=== PATIENT | female | born 1945 | race Caucasian/White ===

== ENCOUNTER 2021-11-21 01:31 | Emergency (ER) | payer OTHER ==
[~2021-11-21] VITALS: Ht 160 cm; Wt 74.8 kg
[2021-11-21] MEDS ORDERED: traMADol HCL 50 MG TAB PO ONE (06:30)
[2021-11-21 06:53] VITALS: BP 185/94
== END 2021-11-21 09:29 | disposition home or self-care (01) ==
LOC: EDBD 01:31 → ER 01:31
DX: S70.02XA Contusion of left hip, initial encounter (principal); I10 Essential (primary) hypertension; W18.39XA Other fall on same level, initial encounter; Y93.89 Activity, other specified; Y92.89 Other specified places as the place of occurrence of the external cause; Y99.8 Other external cause status
CPT/HCPCS: 72170

== ENCOUNTER 2025-05-11 14:36 | Inpatient (IN) | payer OTHER ==
[~2025-05-11] VITALS: Ht 149.9 cm; Wt 79.9 kg
[2025-05-11 15:22] VITALS: O2SAT 93
[2025-05-11] MEDS ORDERED: LABETALOL HCL 20 MG/4 ML VL IV ONE (15:30)
--- NOTE | 2025-05-11 15:52 | ED.PDOC ---
Back pain HPI HPI Comments Ms. 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 The patient, who mainly mobilizes utilizing a wheelchair, was ambulating supporting herself with said wheelchair when it snagged on a towel on the floor causing her to lose her balance and fall. She states she immediately felt pain in right ankle described as sharp, radiating up toward her knee, 8/10 intensity, worsened by bearing weight on the her right leg, without relieving factors, but denies hitting her head or losing consciousness after the fall. The patient was unable to stand on her own, for which she called EMS, however, the patient refused to be taken to a medical center for evaluation and signed an AMA once she was placed on her bed. She reports that pain worsened with complete inability to bear weight on her right leg, rendering her unable to get out of bed, for which she called EMS again today. Per EMS, on scene BP was 230/120 mmHg and blood glucose 200 mg. On initial evaluation, the patient is AOx4, BP 234/110 mmHg, HR 80 bpm, and saturating adequately on room air. Decreased range of motion, bruising, and swelling of right ankle are noted. Attestation note: Dr. Soto: I was the supervising attending for this ED encounter. Please see the resident's notes. I was available for questions and consultations. Differential diagnosis: Fracture, dislocation, neurovascular injury, hematoma, spine injury, As far as possible weakness: Includes but not limited to thyroid disease, encephalopathy, electrolyte abnormality, sepsis, infection, intracranial pathology, drug adverse effects, arrhythmia, kidney insufficiency, ACS, CVA, malignancy, anemia MDM: MDM: patient presented with the above HPI.----fall/extremity pain--workup was initiated. patient was found with the above mentioned diagnosis. the following medications were ordered: please refer to order lists of meds and tests obtained by myself Dr. Soto. Patient ED course and VS have been stabilized. Patient has been reassessed in the ED and remained in a stable condition. Pertinent incidental findings were discussed with the patient and/or family. Patient/family voices understanding and is agreeable with plan. Patient has been observed in the ED adequate length of time to insure improvement/stability. Escalation of care considered: Consideration of escalation to observation or admission Mallorie was consulted. Patient prefers to be admitted to the hospital here. [facility] gave us authorization. Patient will benefit from social service evaluation since she lives at home alone and needs help with activities of daily living. She is high-risk for frequent falls. Patient was ADMITTED to the medicine team for further evaluation and treatment of their presentation. All the reports of any imaging studies that were ordered by myself were reviewed by myself. Chief Complaint: Fall Injury Time Seen by MD: 14:40 Primary Care Provider: MALLORIE Reviewed Notes: Allergies Allergies: Coded Allergies: NO KNOWN ALLERGIES (Unverified , 11/21/21) Information Source: Patient, Emergency Med Personnel Mode of Arrival: EMS Timing: Days Duration: Since onset Location of Back pain: (R) Lumbar, Other (Right ankle) Radiates to: Anterior: Other (Right knee) Severity: Moderate Prehospital treatment: Accucheck Quality: Sharp Onset: Fall Past Medical History PAST MEDICAL HISTORY: DM, Gout, HIV, HTN, UTI'S Past Medical History (Other): Blindness secondary to dry macular degeneration Surgical History: Denies all surgeries CONSOLIDATOR History: No Pertinent CONSOLIDATOR History Family History Family History: Unknown Social History Smoker: Non-Smoker Alcohol: Denies ETOH Use Drugs: Denies Drug Use Lives In: Home Constitutional: denies: chills, diaphoresis, fatigue, fever, malaise, sweats, weakness EENTM: denies: blurred vision, double vision, ear pain, hearing loss, mouth pain, nasal discharge, nose bleeding, nose pain, photophobia, throat pain Respiratory: denies: cough, hemoptysis, orthopnea, shortness of breath Cardiovascular: denies: chest pain, dizzy spells, diaphoresis, edema, lightheadedness, palpitations Gastrointestinal: reports: nausea; denies: abdominal pain, constipated, diarrhea, dysphagia, hematemesis, melena, poor appetite, poor fluid intake Genitourinary: reports: frequency, incontinence, urgency; denies: burning, dysuria, flank pain, hematuria, pain Neurological: denies: dizziness, fainting, headache, numbness, paresthesia, seizure Musculoskeletal: reports: back pain, joint pain, joint swelling; denies: gout, muscle pain, muscle stiffness, neck pain Integumetry: reports: rash; denies: bruises, laceration, lesions, lumps, wounds Physical Exam General Appearance: Moderate Distress, Obese HEENT: Head (Normocephalic, atraumatic, without bruising or lacerations, not painful on palpation ), Normal ENT Inspection, PERRL/EOMI, Pharynx Normal Neck: Limited Range of Motion, Non-Tender, Normal Inspection Respiratory: Lungs Clear, No Accessory Muscle Use, No Respiratory Distress, Normal Breath Sounds Cardiovascular: No Edema, Normal Peripheral Pulses, Regular Rate/Rhythm Breast Exam: Deferred Gastrointestinal: Other (Obese, without bruising or lacerations, soft, normal bowel sounds, no pain on palpation) Genitalia: Deferred Pelvic: Deferred Rectal: Deferred Extremities: Normal capillary refill, Other (Bruising and swelling observed on the lateral surface of the right ankle, decreased range of motion observed, pain on palpation, pulses are present, sensation is intact) Neurologic: Alert, Normal Affect, Normal Mood, Other (No focal weakness or deficits observed at this time) Cerebellar Function: NOT DONE Reflexes: None Skin: Rash (Presence of red rash under right inframammary fold, non painful on palpation), Other (Description of right ankle as above) Peripheral Pulses: 3+ dorsalis pedis (R), 3+ dorsalis pedis (L) Lymphatic: Other (No cervical adenopathy) Was a procedure done? Was a procedure done?: No Back Pain Differential Dx Differential Diagnosis: Fracture, Musculoskeletal Pain Other Differential Diagnosis Fracture, strain, abrasion, head contusion, brain bleed, hematoma, syncope, rib fracture, hematoma X-Ray, Labs, Meds, VS Vital Signs Date Time Temp Pulse Resp B/P (MAP) Pulse Ox O2 Delivery O2 Flow Rate FiO2 05/11/25 19:00 98.3 77 18 162/83 (109) 93 98.3 05/11/25 17:39 74 152/68 05/11/25 17:00 98.5 74 12 152/68 (96) 92 98.5 05/11/25 16:56 156/73 (100) 05/11/25 16:39 75 193/98 05/11/25 16:18 193/98 (129) 05/11/25 15:22 98.5 80 14 230/114 (152) 93 98.5 05/11/25 15:22 93 Room Air* 0 21 05/11/25 14:51 98.7 64 18 230/120 97 98.7 Lab Test 05/11/25 17:56 05/11/25 17:09 05/11/25 16:54 05/11/25 16:08 Range/Units Magnesium Level 2.2 1.6-2.6 mg/dL Troponin I High Sensitivity 6 7 </=34 ng/L Urine Color Colorless Yellow Urine Clarity Clear Clear Urine pH 6.5 5.0-9.0 Urine Specific [place] 1.008 1.001-1.035 Urine Protein Negative Negative Urine Ketones Negative Negative Urine Blood Negative Negative /uL Urine Nitrite Negative Negative Urine Bilirubin Negative Negative Urine Urobilinogen Normal Negative mg/dL Urine Leukocyte Esterase Negative Negative /uL Urine RBC 1 0 - 4 /hpf Urine Microscopic WBC 3 0-5 /HPF Urine Squamous Epithelial Cells Few <5 /hpf Urine Bacteria Few H None Seen /hpf Urine Glucose 2+ H Normal mg/dL Urine Opiates Screen Pending Urine Fentanyl Screen Pending Urine Barbiturates Screen Pending Urine Phencyclidine Screen Pending Urine Amphetamines Screen Pending Urine Benzodiazepines Screen Pending Urine Cocaine Screen Pending Urine Cannabinoids Screen Pending POC Glucose 175 H 70-106 mg/dl White Blood Count 7.4 4.4-10.8 10^3/uL Red Blood Count 4.65 4.0-5.20 10^6/uL Hemoglobin 15.9 12.2-16.2 g/dL Hematocrit 44.6 36.0-46.0 % Mean Corpuscular Volume 95.8 80.0-100.0 fL Mean Corpuscular Hemoglobin 34.2 H 28.0-32.0 pg Mean Corpuscular Hemoglobin Concent 35.7 32.0-36.0 g/dL Red Cell Distribution Width 12.5 11.8-14.3 % Platelet Count 187 140-450 10^3/uL Mean Platelet Volume 7.9 6.9-10.8 fL Neutrophils (%) (Auto) 72.7 37.0-80.0 % Lymphocytes (%) (Auto) 17.6 10.0-50.0 % Monocytes (%) (Auto) 6.8 0.0-12.0 % Eosinophils (%) (Auto) 2.0 0.0-7.0 % Basophils (%) (Auto) 0.9 0.0-2.0 % Neutrophils # (Auto) 5.4 1.6-8.6 10 ^3/uL Lymphocytes # (Auto) 1.3 0.4-5.4 10 ^3/uL Monocytes # (Auto) 0.5 0-1.3 10 ^3/uL Eosinophils # (Auto) 0.1 0-0.8 10 ^3/uL Basophils # (Auto) 0.1 0-0.2 10 ^3/uL Nucleated Red Blood Cells 0.1 % Sodium Level 142 136-145 mmol/L Potassium Level 3.8 3.5-5.1 mmol/L Chloride Level 102 98-107 mmol/L Carbon Dioxide Level 31 20-31 mmol/L Anion Gap 9 5-15 Blood Urea Nitrogen 18 9-23 mg/dL Creatinine 0.79 0.550-1.02 mg/dL Glomerular Filtration Rate Calc 76 >90 mL/min BUN/Creatinine Ratio 22.8 H 10.0-20.0 Serum Glucose 187 H 74-106 mg/dL Lactic Acid Level 1.3 0.4-2.0 mmol/L Calcium Level 9.2 8.7-10.4 mg/dL Total Bilirubin 0.9 0.2-1.0 mg/dL Aspartate Amino Transferase (AST) 26 13-40 U/L Alanine Aminotransferase (ALT) 33 7-40 U/L Alkaline Phosphatase 105 46-116 U/L Creatine Kinase 122 34-145 U/L Total Protein 7.5 5.7-8.2 g/dL Albumin 4.6 3.2-4.8 g/dL Current Medications Medications (Trade) Dose Ordered Sig/Ten Route Start Time Stop Time Status Last Admin Labetalol HCl (Labetalol HCl) 5 mg ONCE ONCE IV 05/11/25 16:30 05/11/25 16:32 DC 05/11/25 16:39 Time of 1ST Reevaluation: 17:00 Reevaluation 1ST: Improved Patient Education/Counseling: Diagnosis, Treatment Family Education/Counseling: No Family Present Comments The patient presented due to ankle pain and inability to bear weight status post a mechanical fall at home last night On initial evaluation, the patient is uncomfortable due to pain, blood pressure 230/110 mmHg, and saturating adequately on room air. Additionally, given that the patient was unable to bear weight on her own accord and had no assistance at home, she was covered in urine from multiple episodes of incontinence. Examination is positive for bruising and swelling of the lateral aspect of the right ankle, with decreased range of motion and pain. Additionally there is presence of a red rash in the right inframammary fold. There were no other signs of bruising, trauma, or lacerations noted on physical exam. Workup including CBC and CMP are benign. UA shows no signs of infection. CK 122, troponins are negative Right ankle x-ray shows no evidence of fracture or malalignment with presence of diffuse edema. A Johansen catheter was placed. Labetalol 5 mg IV once was given for blood pressure control Granted that the patient is currently immobile due to pain, lives alone and does not have reliable help, we consider that she requires inpatient admission. Patient's vitals are currently stable, and she would be stable for transfer to [place]. I have spoken with Dr. Myers from [place] for this process, per [place], given that she lives 30 miles outside of the nearest [place] facility, her benefits allow her to stay at this institution. The patient has vocalized that she wishes to stay here. They state that authorization is the same as her case number listed below. Case # [id number] SEPSIS Sepsis Screen Date sepsis recognized/suspect: May 11, 2025 Time Sepsis recognized/suspect: 1444 Recent Procedure: No On Antibiotic Therapy: Yes Respiratory Rate >20: No Heart Rate >90: Yes Temp<36 C (96.8 F) or >38.3 C: No SBP <90 or MAP <65 mmHG: No New Acute Mental Status Change: No Is the patient on CPAP, BIPAP,: No Physician Orders Insert/Manage Urinary Catheter QSHIFT (05/11/25 15:24) R Ankle 2 View Xray (05/11/25 15:24) Urine Bacterial Culture (05/11/25 15:27) Electrocardigram (05/11/25 17:40) Head Without Contrast (05/11/25 17:40) Ct Ab Pel Wo Con-No Oral Or Iv (05/11/25 18:44) Vital Signs Date Time Temp Pulse Resp B/P (MAP) Pulse Ox O2 Delivery O2 Flow Rate FiO2 05/11/25 19:00 98.3 77 18 162/83 (109) 93 98.3 05/11/25 17:39 74 152/68 05/11/25 17:00 98.5 74 12 152/68 (96) 92 98.5 05/11/25 16:56 156/73 (100) 05/11/25 16:39 75 193/98 05/11/25 16:18 193/98 (129) 05/11/25 15:22 98.5 80 14 230/114 (152) 93 98.5 05/11/25 15:22 93 Room Air* 0 21 05/11/25 14:51 98.7 64 18 230/120 97 98.7 Laboratory Tests Test 05/11/25 16:08 Lactic Acid Level 1.3 mmol/L (0.4-2.0) White Blood Count 7.4 10^3/uL (4.4-10.8) Medications Medications Dose Ordered Sig/Ten Route Start Time Stop Time Status Last Admin Dose Admin Labetalol HCl 5 mg ONCE ONCE IV 05/11/25 16:30 05/11/25 16:32 DC 05/11/25 16:39 Departure 1 Departure Time of Disposition: 19:31 Impression: Primary Impression: Fall Additional Impressions: Ankle sprain Fibroid uterus Constipation Disposition: 09 ADMITTED INPATIENT Admit to: Tele Condition: Guarded Discharged With: Self Critical Care Note Critical Care Time?: No Stability Stability form required: No Heart Score Heart Score: Heart Score Response (Comments) Value History N/A 0 EKG N/A 0 Age N/A 0 Risk Factors N/A 0 Troponin N/A 0 Total 0 ASHU LUCIO RESIDENT May 11, 2025 15:52 ELODIA SOTO DO May 11, 2025 22:09
--- NOTE | 2025-05-11 16:18 | DVH ---
Indication: Ankle pain after fall Technique: XY R ANKLE 2 VIEW XRAYXY Comparison: None FINDINGS/IMPRESSION: No radiographic evidence for acute fracture or dislocation. Osteopenia. Diffuse right ankle soft ti ssue edema. [id number] degenerate changes of the right hindfoot.
[2025-05-11 16:38] LABS: Alanine Aminotransferase 33 U/L (7-40); Albumin 4.6 g/dL (3.2-4.8); Alkaline Phosphatase 105 U/L (46-116); Anion Gap 9 (5-15); BUN/Creatinine Ratio 22.8 (10.0-20.0); Blood Urea Nitrogen 18 mg/dL (9-23); Calcium 9.2 mg/dL (8.7-10.4); Carbon Dioxide 31 mmol/L (20-31); Chloride 102 mmol/L (98-107); Potassium 3.8 mmol/L (3.5-5.1); Sodium 142 mmol/L (136-145); Total Protein 7.5 g/dL (5.7-8.2)
[2025-05-11 16:39] LABS: Bilirubin, Total 0.9 mg/dL (0.2-1.0); Creatine Kinase IFCC 122 U/L (34-145); Glucose 187 mg/dL (74-106)
[2025-05-11] MEDS: LABETALOL HCL 20 MG/4 ML VL IV ONE (16:39)
[2025-05-11 16:47] LABS: Hematocrit 44.6 % (36.0-46.0); Hemoglobin 15.9 g/dL (12.2-16.2); Mean Corpuscular Hemoglobin 34.2 pg (28.0-32.0); Mean Corpuscular Volume 95.8 fL (80.0-100.0); Nucleated Red Blood Cells % 0.1 %
[2025-05-11 17:20] LABS: Urine Protein, UAD Negative (Negative)
--- NOTE | 2025-05-11 18:34 | DVH ---
CT HEAD WITHOUT CONTRAST INDICATION: Fall COMPARISON: None TECHNIQUE: CT of the head without intravenous contrast. RADIATION DOSE: CTDIvol: 53.18 mGy, DLP: 959.01 mGy*cm FINDINGS: There is no evidence of acute intracranial hemorrhage, extra-axial collection, mass effect, midline s hift, herniation or hydrocephalus. The ventricles, sulci and cisterns are age appropriate. The haider -white differentiation is intact. The visualized paranasal sinuses and mastoid air cells are clear. Chronic microvascular ischemic changes. The surrounding soft tissues and osseous structures are unrem arkable. IMPRESSION: 1. No acute intracranial abnormality. 2. Chronic microvascular ischemic changes
--- NOTE | 2025-05-11 20:07 | DVH ---
Exam: CT CT AB PEL WO CON-NO ORAL OR IV History: Pain after fall Comparison Study: PELVIS AP on DOS: 11/21/21, PELVS on DOS: 11/21/21 Technique: Multidetector spiral CT of the abdomen was performed from lung bases to pubic symphysis. Imaging was performed without IV contrast. Axial, coronal and sagittal multiplanar reformats were ob tained from the axial data set by the technologist. Radiation Dose : 1. Abdomen/Pelvis: CTDIvol 23.65 mGy, DLP 1348.9 mGy*cm. Findings: Evaluation of solid organs is limited due to lack of intravenous contrast use. Lung Bases: No acute or significant lung base finding. Normal heart size. No pleural or pericardial effusion. Liver: The liver is normal in size. No focal lesions. Gallbladder and Biliary Tree: Cholelithiasis noted without secondary findings of cholecystitis or mel iary obstruction. Spleen: Unremarkable Pancreas: The pancreas is grossly normal in appearance. Adrenal Glands: Unremarkable Kidneys: Kidneys are grossly normal without calculi or hydronephrosis. Bladder: Bladder is decompressed with a Johansen catheter and cannot be adequately assessed. Bowel: The stomach is grossly normal in appearance. Small bowel and colon are normal in caliber and d istribution. The appendix is not visualized; however, no secondary findings of acute appendicitis id entified. Moderate to severe colonic stool burden. Ascites: Absent Lymphadenopathy: No mesenteric, retroperitoneal or periportal lymphadenopathy. Abdominal Wall and Mesentery: Unremarkable. Vasculature: The visualized abdominal aorta is normal in size and caliber. Evaluation of abdominal a nd pelvic vessels is limited due to lack of intravenous contrast. Pelvic Organs: Partially calcified fibroid uterus. Musculoskeletal: No aggressive focal bony lesions, acute fractures or dislocation. Severe degenerativ e changes in the bilateral hip joints. IMPRESSION: 1. No acute abdominal or pelvic findings. 2. Cholelithiasis without secondary findings of cholecystitis or biliary obstruction. 3. Moderate to severe colonic stool burden. 4. Fibroid uterus. Radiation optimization: All CT scans at this facility use at least one of these dose optimization ana hniques: automated exposure control mA and/or kV adjustment per patient size (includes targeted exam s where dose is matched to clinical indication) or iterative reconstruction.
[2025-05-11] MEDS ORDERED: DEXTROSE (50%) 50ML SYRG IV PRN (21:00)
[2025-05-11] MEDS ORDERED: ACETAMINOPHEN 325 MG TAB PO PRN (21:00)
--- NOTE | 2025-05-11 21:41 | DVHHPRES ---
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 Patient reports that she uses a wheelchair to ambulate because of pain in her knees due to gout and today morning when she was trying to pivot to the wheelchair it snapped on a towel on the floor causing her to lose balance and fall. She immediately felt pain in her right ankle describing it as sharp, radiating up towards her knee, 8/10 intensity, worsened by bearing weight on the right leg without any relieving factors prompting her to visit [facility]. She left AMA but upon returning home the pain was increasing so she called the EMR and was brought to this facility. Patient denies hitting her head or losing consciousness after the fall, any shortness of breath, chest pain, dizziness, nausea, vomiting, abdominal pain, back pain. On inquiry, patient states that she has not taken blood pressure medications since last night as she was unable to ambulate. BP on admission was 230/120 mmHg, HR 80 BMP, and blood glucose 200 mg. We are admitting the patient for further workup and management. Past medical history: As stated above Surgical history: Bilateral tubal ligation Family history: Reviewed and noncontributory to the management of this lon Social history: lives at home. Denies smoking, drinking alcohol but reports she sometimes drinks tea which contains cannabinoids Allergies: none Primary Care Provider: M[facility]OR[facility]- Dr. Riggins Code status: Full code Review of Systems Constitutional: No: Fever, Chills, Sweats, Weakness, Malaise, Other Eyes: No: Pain, Vision change, Conjunctivae inflammation, Eyelid inflammation, Other, Redness ENT: No: Ear pain, Ear discharge, Nose pain, Nose discharge, Nose congestion, Mouth pain, Mouth swelling, Throat pain, Throat swelling, Other Respiratory: No: Cough, Dry, Shortness of breath, SOB with excertion, Wheezing, Hemoptysis, Pleuritic Pain, Sputum, Wheezing, Other Cardiovascular: No: Chest Pain, Palpitations, Orthopnea, Paroxysmal Noc. Dyspnea, Edema, Lt Headedness, Other Gastrointestinal: No: Nausea, Vomiting, Abdominal Pain, Diarrhea, Constipation, Melena, Hematochezia, Other Genitourinary: No Dysuria, No Frequency, No Incontinence, No Hematuria, No Retention, No Other Musculoskeletal: foot pain (right ankle pain and swelling); No: other, neck pain, shoulder pain, arm pain, back pain, hand pain, leg pain Skin: No: Rash, Lesions, Jaundice, Bruising, Other Neurological: No: Weakness, Numbness, Incoordination, Change in speech, Confusion, Seizures, Other Allergies: Coded Allergies: NO KNOWN ALLERGIES (Unverified , 11/21/21) Medications Current Medications Medications Dose Ordered Sig/Ten Route Start Time Stop Time Status Last Admin Dose Admin Acetaminophen/ Hydrocodone Bitart 1 tab Q4HP PRN PO 05/11/25 21:00 Ondansetron HCl 4 mg Q4HP PRN IV 05/11/25 21:00 Acetaminophen 650 mg Q6HP PRN PO 05/11/25 21:00 Enoxaparin Sodium 40 mg DAILY SC 05/11/25 21:00 Diagnostic Test (Pha) 1 strip ACHS 05/11/25 22:00 Insulin Human Regular ACHS SC 05/11/25 22:00 Dextrose 50 ml UD PRN IV 05/11/25 21:00 Losartan Potassium 25 mg DAILY PO 05/12/25 10:00 Allopurinol 100 mg DAILY PO 05/12/25 10:00 Hydromorphone HCl 0.25 mg Q4HPRN PRN IV 05/11/25 21:00 Carvedilol 6.25 mg Q12HR PO 05/12/25 10:00 Hydralazine HCl 10 mg Q6HP PRN IV 05/11/25 21:00 Exam Vital Signs Vital Signs Date Time Temp Pulse Resp B/P (MAP) Pulse Ox O2 Delivery O2 Flow Rate FiO2 05/11/25 19:00 98.3 77 18 162/83 (109) 93 98.3 05/11/25 15:22 Room Air* 0 21 Exam Pt is lying on bed General Appearance: Alert, Oriented X3, Cooperative, in mild distress HEENT: Atraumatic, Mucous membranes moist/pink Respiratory: Clear to auscultation, Normal air movement, No added sounds Cardiovascular: Regular rate, Normal S1, Normal S2, No murmurs Abdominal: Active bowel sounds, Soft, no distention, no tenderness Extremities: No edema, Normal pulses, Tenderness present in the right ankle joint more on the lateral malleolus, swelling present in comparison to the left leg, no bruising Skin: No Significant rash, except past surgical scars Neuro: Normal speech, sensorimotor deficits none Psych/Mental Status: Mental status NL, Mood NL Labs/Xrays Labs Test 05/11/25 17:56 05/11/25 17:09 05/11/25 16:54 05/11/25 16:08 Range/Units Troponin I High Sensitivity 6 </=34 ng/L Urine Color Colorless Yellow Urine Clarity Clear Clear Urine pH 6.5 5.0-9.0 Urine Specific [place] 1.008 1.001-1.035 Urine Protein Negative Negative Urine Ketones Negative Negative Urine Blood Negative Negative /uL Urine Nitrite Negative Negative Urine Bilirubin Negative Negative Urine Urobilinogen Normal Negative mg/dL Urine Leukocyte Esterase Negative Negative /uL Urine RBC 1 0 - 4 /hpf Urine Microscopic WBC 3 0-5 /HPF Urine Squamous Epithelial Cells Few <5 /hpf Urine Bacteria Few H None Seen /hpf Urine Glucose 2+ H Normal mg/dL POC Glucose 175 H 70-106 mg/dl White Blood Count 7.4 4.4-10.8 10^3/uL Red Blood Count 4.65 4.0-5.20 10^6/uL Hemoglobin 15.9 12.2-16.2 g/dL Hematocrit 44.6 36.0-46.0 % Mean Corpuscular Volume 95.8 80.0-100.0 fL Mean Corpuscular Hemoglobin 34.2 H 28.0-32.0 pg Mean Corpuscular Hemoglobin Concent 35.7 32.0-36.0 g/dL Red Cell Distribution Width 12.5 11.8-14.3 % Platelet Count 187 140-450 10^3/uL Mean Platelet Volume 7.9 6.9-10.8 fL Neutrophils (%) (Auto) 72.7 37.0-80.0 % Lymphocytes (%) (Auto) 17.6 10.0-50.0 % Monocytes (%) (Auto) 6.8 0.0-12.0 % Eosinophils (%) (Auto) 2.0 0.0-7.0 % Basophils (%) (Auto) 0.9 0.0-2.0 % Neutrophils # (Auto) 5.4 1.6-8.6 10 ^3/uL Lymphocytes # (Auto) 1.3 0.4-5.4 10 ^3/uL Monocytes # (Auto) 0.5 0-1.3 10 ^3/uL Eosinophils # (Auto) 0.1 0-0.8 10 ^3/uL Basophils # (Auto) 0.1 0-0.2 10 ^3/uL Nucleated Red Blood Cells 0.1 % Sodium Level 142 136-145 mmol/L Potassium Level 3.8 3.5-5.1 mmol/L Chloride Level 102 98-107 mmol/L Carbon Dioxide Level 31 20-31 mmol/L Anion Gap 9 5-15 Blood Urea Nitrogen 18 9-23 mg/dL Creatinine 0.79 0.550-1.02 mg/dL Glomerular Filtration Rate Calc 76 >90 mL/min BUN/Creatinine Ratio 22.8 H 10.0-20.0 Serum Glucose 187 H 74-106 mg/dL Lactic Acid Level 1.3 0.4-2.0 mmol/L Calcium Level 9.2 8.7-10.4 mg/dL Total Bilirubin 0.9 0.2-1.0 mg/dL Aspartate Amino Transferase (AST) 26 13-40 U/L Alanine Aminotransferase (ALT) 33 7-40 U/L Alkaline Phosphatase 105 46-116 U/L Creatine Kinase 122 34-145 U/L Total Protein 7.5 5.7-8.2 g/dL Albumin 4.6 3.2-4.8 g/dL SEPSIS Sepsis Screen Date sepsis recognized/suspect: May 11, 2025 Time Sepsis recognized/suspect: 2 Recent Procedure: No On Antibiotic Therapy: No Respiratory Rate >20: No Heart Rate >90: No Temp<36 C (96.8 F) or >38.3 C: No SBP <90 or MAP <65 mmHG: No New Acute Mental Status Change: No Is the patient on CPAP, BIPAP,: No Physician Orders Insert/Manage Urinary Catheter QSHIFT (05/11/25 15:24) R Ankle 2 View Xray (05/11/25 15:24) Urine Bacterial Culture (05/11/25 15:27) Electrocardigram (05/11/25 17:40) Head Without Contrast (05/11/25 17:40) Ct Ab Pel Wo Con-No Oral Or Iv (05/11/25 18:44) Admit (05/11/25 20:54) Code Status (05/11/25 20:54) Hydrocodone-Acet 5/325mg Tab ([place] 5/32 (05/11/25 21:00) Ondansetron Hcl (Zofran) (05/11/25 21:00) Complete Blood Count (05/12/25 04:00) Comprehensive Metabolic Panel (05/12/25 04:00) Cardiac Diet-2gna,Lofat,Lochol (05/12/25 Breakfast) Pt Request For Service (05/11/25 20:54) Condition: Unstable (05/11/25 20:54) Acetaminophen Tablet (Tylenol Tablet) (05/11/25 21:00) Enoxaparin Sodium (Lovenox) (05/11/25 21:00) Notify Of Changes From Base (05/11/25 20:54) Electrocardigram (05/11/25 20:54) Glucose Blood (Accu-Chek Comfort Curve T (05/11/25 22:00) Insulin R (Human) (Insulin R) (05/11/25 22:00) Dextrose 50% Syringe (05/11/25 21:00) Losartan Tablet (Cozaar Tablet) (05/12/25 10:00) Allopurinol Tablet (Zyloprim Tablet) (05/12/25 10:00) Hydromorphone Injection (Dilaudid Inject (05/11/25 21:00) Magnesium (05/11/25 20:54) Drug Screen (05/11/25 20:54) Carvedilol Tablet (Coreg Tablet) (05/12/25 10:00) Hydralazine Injection (Apresoline Inject (05/11/25 21:00) Apply Ice To Affected Area (05/11/25 20:54) Elevate Affected Extremity (05/11/25 20:54) Chest Portable (05/11/25 20:54) Pharmacy To Reconcile Home Med (05/11/25 20:54) Vital Signs Date Time Temp Pulse Resp B/P (MAP) Pulse Ox O2 Delivery O2 Flow Rate FiO2 05/11/25 19:00 98.3 77 18 162/83 (109) 93 98.3 05/11/25 17:39 74 152/68 05/11/25 17:00 98.5 74 12 152/68 (96) 92 98.5 05/11/25 16:56 156/73 (100) 05/11/25 16:39 75 193/98 05/11/25 16:18 193/98 (129) 05/11/25 15:22 98.5 80 14 230/114 (152) 93 98.5 05/11/25 15:22 93 Room Air* 0 21 05/11/25 14:51 98.7 64 18 230/120 97 98.7 Laboratory Tests Test 05/11/25 16:08 Lactic Acid Level 1.3 mmol/L (0.4-2.0) White Blood Count 7.4 10^3/uL (4.4-10.8) Medications Medications Dose Ordered Sig/Ten Route Start Time Stop Time Status Last Admin Dose Admin Labetalol HCl 5 mg ONCE ONCE IV 05/11/25 16:30 05/11/25 16:32 DC 05/11/25 16:39 5 MG Assessment/Plan Assessment/Plan #Hypertensive urgency - labetalol 5 mg and 10 mg given IV once on admission, stopped now - continue home medication carvedilol 6.25 mg p.o. q.12 - losartan 25 mg p.o. daily - hydralazine 10 mg IV q.6 PRN if SBP> 160 - Zofran 4 mg IV q.4 PRN - chest x-ray - ekg # Pain in the ankle joint, ruled out fracture, possible sprain # Osteopenia of right ankle joint # Degenerative changes of right foot - Right ankle x-ray shows: no radiographic evidence for acute fracture or dislocation. Osteopenia. Diffuse right ankle soft tissue edema. [id number] degenerative changes of the right hindfoot. - CT head shows no intracranial abnormality, chronic microvascular ischemic changes - Pain control with: acetaminophen 650 mg q.6 PRN for mild pain [place] 5/35 mg q.4 PRN for moderate pain hydromorphone 0.25 mg IV q.4 PRN for severe pain - ice pack to affected area - outpatient MRI suggested #Type 2 diabetes mellitus - A1c ordered - mild sliding scale insulin #Gout, not under flare-up -continue home medication allopurinol 100 mg p.o. daily #Slow transit constipation - CT abdomen and pelvis shows Moderate to severe colonic stool burden. - MiraLAX 17 g once #Fibroid uterus - seen in CT abdomen and pelvis - outpatient follow up #Cholelithiasis - CT of the abdomen and pelvis shows cholelithiasis without secondary findings of cholecystitis or biliary obstruction. - outpatient follow up #History of HIV -continue taking home medication #History of substance abuse, cannabinoids - UDS - patient has been counseled regarding cessation of cannabinoid and the side effects and harms it can cause to health over 8 minutes #Morbid Obesity, BMI 36.7 kg/m2 - patient was counseled regarding need of exercise, dietary modification and importance of weight loss over 8 minutes DVT prophylaxis: Lovenox 40 mg subcutaneously daily Diet: cardiac and diabetic diet Goals of care discussed with the patient for more than 27 minutes: Full code status Case discussed with Dr. Mason, patient Plan discussed with: Patient My Orders Orders - BOGDAN POLANCO RESIDENT Procedure Category Date Status Time Admit ADMIT 05/11/25 Transmitted 20:54 Code Status CODE 05/11/25 Transmitted 20:54 Hydrocodone-Acet PHA 05/11/25 In Process 5/325mg Tab ([place] 21:00 Ondansetron Hcl PHA 05/11/25 In Process (Zofran) 21:00 Complete Blood Count LAB 05/12/25 Verified 04:00 Comprehensive LAB 05/12/25 Verified Metabolic Panel 04:00 Cardiac DIET 05/12/25 Transmitted Diet-2gna,Lofat,Lochol Breakfast Pt Request For Service PT 05/11/25 Logged 20:54 Condition: Unstable GOLDIE 05/11/25 In Process 20:54 Acetaminophen Tablet PHA 05/11/25 In Process (Tylenol Tablet) 21:00 Enoxaparin Sodium PHA 05/11/25 In Process (Lovenox) 21:00 Notify Md Of Changes GOLDIE 05/11/25 In Process From Base 20:54 Electrocardigram EKG 05/11/25 Logged 20:54 Glucose Blood PHA 05/11/25 In Process (Accu-Chek Comfort 22:00 Insulin R (Human) PHA 05/11/25 In Process (Insulin R) 22:00 Dextrose 50% Syringe PHA 05/11/25 In Process 21:00 Losartan Tablet PHA 05/12/25 In Process (Cozaar Tablet) 10:00 Allopurinol Tablet PHA 05/12/25 In Process (Zyloprim Tablet) 10:00 Hydromorphone PHA 05/11/25 In Process Injection (Dilaudid 21:00 Magnesium LAB 05/11/25 In Process 20:54 Drug Screen LAB 05/11/25 Logged 20:54 Carvedilol Tablet PHA 05/12/25 In Process (Coreg Tablet) 10:00 Hydralazine Injection PHA 05/11/25 In Process (Apresoline Inject 21:00 Apply Ice To Affected GOLDIE 05/11/25 In Process Area 20:54 Elevate Affected GOLDIE 05/11/25 In Process Extremity 20:54 Chest Portable XY 05/11/25 Taken 20:54 Pharmacy To Reconcile ORDERS 05/11/25 Transmitted Home Med 20:54 Date of Service: May 11, 2025 Billing Provider: JAMIL MASON MD Common Visit Codes: [id number] INP/OBS CARE (HIGH) Secondary Visit Codes: [id number] CARE PLAN 30 MINUTES BOGDAN POLANCO RESIDENT May 11, 2025 21:41 VIANEY RICHARDSON RESIDENT May 12, 2025 01:36
[2025-05-11] MEDS: ENOXAPARIN SOD 40 MG/0.4 ML SYRINGE SC SCH (21:50)
[2025-05-11] MEDS: HYDROmorphone HCL 2 MG/ML VL/or syr IV PRN (21:52)
--- NOTE | 2025-05-11 21:59 | DVH ---
CHEST RADIOGRAPH Indication: sob Technique: 1 view Comparison: None FINDINGS: Soft tissue attenuation and beam underpenetration limits assessment. Lines and Tubes: None. Lungs/Pleura: No focal consolidation, pleural effusion or pneumothorax. Interstitial opacities appear within normal limits. Cardiomediastinum: Unremarkable. Other: No acute osseous abnormality. IMPRESSION: 1. No acute cardiopulmonary abnormality.
[2025-05-11 22:21] LABS: Amphetamine Screen, Urine Neg (NEGATIVE); Barbiturate Scree,Urine Neg (NEGATIVE); Benzodiazephine Screen, Urine Neg (NEGATIVE); Cannabinoid Screen, Urine Neg (NEGATIVE); Cocaine Screen, Urine Neg (NEGATIVE); Opiate Scree,Urine Neg (NEGATIVE); Phencyclidine Screen, Urine Neg (NEGATIVE)
[2025-05-11] MEDS: POLYETHYLENE GLYCOL 17 GM PWDR PO ONE (22:38)
[2025-05-11] MEDS: InsuLIN REG 1unit/0.01ml Soln (100units/ml) SC SCH (22:40)
[2025-05-11] MEDS: ACCU-CHEK COMFORT CURVE STRIP VI SCH (22:40)
[2025-05-11 23:37] VITALS: BP 152/83; PULSE 78; RESP 18; TEMP 98.4; O2SAT 92
[2025-05-12] MEDS ORDERED: METH-928 PO (00:27)
[2025-05-12] MEDS ORDERED: EMTR1TAB12 PO (00:27)
[2025-05-12] MEDS ORDERED: LOSA-534 PO (00:27)
[2025-05-12] MEDS ORDERED: COLC1CAP PO (00:27)
[2025-05-12] MEDS ORDERED: ACYC400T16 PO ×2 (00:27)
[2025-05-12] MEDS ORDERED: CARV6.2551 PO (00:27)
[2025-05-12] MEDS ORDERED: FLUC200T50 PO (00:27)
[2025-05-12] MEDS ORDERED: MAGN400T40 PO (00:27)
[2025-05-12] MEDS: CARVEDILOL 3.125 MG TAB PO ONE (02:43)
[2025-05-12 05:00] VITALS: BP 113/57; PULSE 68; RESP 18; TEMP 97.9; O2SAT 91
[2025-05-12 05:56] LABS: Hematocrit 40.4 % (36.0-46.0); Hemoglobin 14.2 g/dL (12.2-16.2); Mean Corpuscular Hemoglobin 34.3 pg (28.0-32.0); Mean Corpuscular Volume 97.5 fL (80.0-100.0); Nucleated Red Blood Cells % 0.0 %
[2025-05-12 06:17] LABS: Alanine Aminotransferase 27 U/L (7-40); Albumin 4.1 g/dL (3.2-4.8); Alkaline Phosphatase 87 U/L (46-116); Anion Gap 9 (5-15); BUN/Creatinine Ratio 18.9 (10.0-20.0); Blood Urea Nitrogen 17 mg/dL (9-23); Calcium 8.9 mg/dL (8.7-10.4); Carbon Dioxide 29 mmol/L (20-31); Chloride 102 mmol/L (98-107); Potassium 3.9 mmol/L (3.5-5.1); Sodium 140 mmol/L (136-145); Total Protein 6.9 g/dL (5.7-8.2)
[2025-05-12 06:18] LABS: Bilirubin, Total 0.9 mg/dL (0.2-1.0)
[2025-05-12 06:24] LABS: Glucose 207 mg/dL (74-106)
[2025-05-12 09:00] VITALS: BP 126/69; PULSE 67; RESP 16; TEMP 98.3; O2SAT 91
[2025-05-12] MEDS: LOSARTAN POTASSIUM 25 MG TAB PO SCH (11:06)
[2025-05-12] MEDS: ALLOPURINOL 100 MG TAB PO SCH (11:06)
[2025-05-12] MEDS: CARVEDILOL 3.125 MG TAB PO SCH (11:07)
[2025-05-12] MEDS ORDERED: IBUP-1453 PO (11:08)
[2025-05-12 13:00] VITALS: BP 139/69; PULSE 75; RESP 18; TEMP 99.8; O2SAT 95
[2025-05-12] MEDS ORDERED: DOCUSATE SOD 100 MG CAP PO PRN (15:00)
[2025-05-12] MEDS: HYDROcodone-ACET 5/325MG TAB PO PRN (15:05)
[2025-05-12 17:00] VITALS: BP 128/70; PULSE 76; RESP 16; TEMP 100.3; O2SAT 91
[2025-05-12] MEDS: KETOROLAC TROMETH 30 MG/ML 1ML VIAL IV ONE (18:20)
[2025-05-12] MEDS: DOCUSATE SOD 100 MG CAP PO ONE (18:21)
[2025-05-12 20:00] VITALS: PULSE 72; RESP 18; O2SAT 94
[2025-05-12 21:00] VITALS: BP 119/65; PULSE 72; RESP 18; TEMP 98.9; O2SAT 94
[2025-05-12] MEDS: ACYCLOVIR 400 MG TAB PO SCH (21:49)
[2025-05-13 01:00] VITALS: BP 118/62; PULSE 67; RESP 18; TEMP 98.8; O2SAT 95
[2025-05-13 04:19] LABS: Hemoglobin 13.6 g/dL (12.2-16.2)
[2025-05-13 04:22] LABS: Hematocrit 37.5 % (36.0-46.0); Mean Corpuscular Hemoglobin 35.2 pg (28.0-32.0); Mean Corpuscular Volume 97.0 fL (80.0-100.0); Nucleated Red Blood Cells % 0.1 %
[2025-05-13 04:30] LABS: Anion Gap 8 (5-15); Carbon Dioxide 28 mmol/L (20-31); Chloride 103 mmol/L (98-107); Potassium 3.9 mmol/L (3.5-5.1); Sodium 139 mmol/L (136-145)
[2025-05-13 04:31] LABS: Calcium 8.9 mg/dL (8.7-10.4)
[2025-05-13 04:32] LABS: INR 0.98 (0.9-1.15); Partial Thromboplastin Time 28.9 SEC (24.5-34.5); Prothrombin Time 10.4 sec (9.3-11.8)
[2025-05-13 04:36] LABS: BUN/Creatinine Ratio 37.8 (10.0-20.0)
[2025-05-13 04:40] LABS: Blood Urea Nitrogen 34 mg/dL (9-23); Glucose 187 mg/dL (74-106)
[2025-05-13 05:00] VITALS: BP 143/60; PULSE 65; RESP 18; TEMP 98.7; O2SAT 93
[2025-05-13] MEDS: COLCHICINE 0.6 MG CAP PO SCH (08:53)
[2025-05-13 09:00] VITALS: BP 122/53; PULSE 67; RESP 16; TEMP 99.5; O2SAT 92
--- NOTE | 2025-05-13 11:16 | DVHPN2 ---
Progress Note Date Seen: May 12, 2025 Medical Necessity Reason Pt with a Central, PICC or Fol: No Subjective Patient reports: No new complaints Review of Systems: HEENT:Normal, CVS:Normal, RESPIRATORY:Normal, GI:Normal, :Normal, MSK:Normal, NEURO:Normal Objective vital signs Vital Sign Date Time Temp Pulse Resp B/P (MAP) Pulse Ox O2 Delivery O2 Flow Rate FiO2 05/12/25 13:00 99.8 75 18 139/69 (92) 95 99.8 05/11/25 23:37 Room Air* 0 21 Total Intake and Output 05/11/25 05/11/25 05/12/25 15:00 23:00 07:00 Intake Total 200 ml Output Total 250 ml Balance -50 ml medications Current Medications Medications Dose Ordered Sig/Ten Route Start Time Stop Time Status Last Admin Dose Admin Acetaminophen/ Hydrocodone Bitart 1 tab Q4HP PRN PO 05/11/25 21:00 Ondansetron HCl 4 mg Q4HP PRN IV 05/11/25 21:00 Acetaminophen 650 mg Q6HP PRN PO 05/11/25 21:00 Enoxaparin Sodium 40 mg DAILY SC 05/11/25 21:00 05/11/25 21:50 40 MG Diagnostic Test (Pha) 1 strip ACHS 05/11/25 22:00 05/12/25 11:30 1 STRIP Insulin Human Regular ACHS SC 05/11/25 22:00 Dextrose 50 ml UD PRN IV 05/11/25 21:00 Losartan Potassium 25 mg DAILY PO 05/12/25 10:00 05/12/25 11:06 25 MG Allopurinol 100 mg DAILY PO 05/12/25 10:00 05/12/25 11:06 100 MG Hydromorphone HCl 0.25 mg Q4HPRN PRN IV 05/11/25 21:00 05/11/25 21:52 0.25 MG Carvedilol 6.25 mg Q12HR PO 05/12/25 10:00 05/12/25 11:07 6.25 MG Hydralazine HCl 10 mg Q6HP PRN IV 05/11/25 21:00 Patient Own Medication 1 DAILY PO 05/13/25 10:00 UNV Examination: GENERAL:Normal, HEENT:Normal, NECK:Normal, LUNGS:Normal, CVS:Normal, ABDOMEN:Normal, MSK:Normal, MSK:Abnormal (right ankle swelling, tenderness), SKIN:Normal, NEURO:Normal, NEURO:Abnormal (lower extremity contractures), :Normal laboratory and microbiology Laboratory Tests 05/12/25 05:21 Test 05/12/25 05:21 Range/Units Serum Glucose 207 H 74-106 mg/dL Microbiology Date/Time Source Procedure Growth Status 05/11/25 17:09 Voided Urine Urine Culture - Preliminary Resulted Problem List/Assessment/Plan Problem List/Assessment/Plan #1 s/p fall with right ankle pain ?sprain: ortho eval #2 dm: ssi #3 hypertensive urgency: cont meds #4 HIV: cont meds #5 obesity\ #6 gout #7 wheel chair bound/contractures #8 gallstones unstable for transfer advance care planning- full code- time spent 18 mins Plan discussed with: Patient My Orders My Orders Orders - BETTY LIN MD Procedure Category Date Status Time * Orthopedic Consult CONS 05/12/25 Transmitted 14:42 Ketorolac Injection PHA 05/12/25 Logged (Toradol Injection) 15:00 Patients Own PHA 05/13/25 Logged Medication 10:00 Date of Service: May 12, 2025 Billing Provider: BETTY LIN MD Common Visit Codes: [id number] INP/OBS CARE(HIGH) Secondary Visit Codes: [id number] CARE PLAN 30 MINUTES BETTY LIN MD May 12, 2025 15:00
--- NOTE | 2025-05-13 11:19 | DVHINCON2 ---
Date of service: May 12, 2025 Reason for Consultation Right ankle sprain History of Present Illness Mrs. Baig is a 79-year-old female who was brought to the hospital after experiencing a mechanical fall yesterday where she reports she was trying to pivot to her wheelchair and slipped on a towel on the floor causing her to lose her balance and fall twisting her right ankle and has been having pain and has been unable to bear weight on that side since the fall. Patient denied any head trauma, loss of consciousness, shortness of breath, chest pain, nausea, vomiting , fever, or chills. Patient reports some improvement of her pain since being admitted but continues to have pain and swelling to her right ankle. Patient is otherwise feeling well denying any other complaints or concerns during my evaluation. Past Medical History Aids, type 2 diabetes, hypertension, macular degeneration, gout, herpes zoster Past Surgical History Bilateral tubal ligation Family History: Diabetes mellitus G8 FATHER FH: cancer G8 MOTHER Family History Noncontributory Social History Patient denies smoking, EtOH, or illicit substance abuse Allergies: Coded Allergies: NO KNOWN ALLERGIES (Unverified , 11/21/21) Home Meds Reported Medications Ibuprofen (Ibuprofen) 400 Mg Tab, 1 TAB PO Q8HR PRN for PAIN TAKE WITH FOOD. 05/12/25 Magnesium Oxide (MAGNESIUM OXIDE) 400 Mg Tab, 1 TAB PO PRN 05/12/25 Methenamine Hippurate (Methenamine Hippurate) 1 Gm Tab, 1 GM PO BID 05/12/25 Carvedilol (Carvedilol) 6.25 Mg Tab, 6.25 MG PO BID, TAB 05/12/25 Losartan Potassium (Losartan Potassium) 50 Mg Tab, 1 TAB PO DAILY 05/12/25 Colchicine (Colchicine) 0.6 Mg Cap, 0.6 MG PO DAILY, CAP 05/12/25 Acyclovir (ZOVIRAX TABLET) 400 Mg Tb, 800 MG PO TID, TAB 05/12/25 Fluconazole (Fluconazole) 200 Mg Tab, 1 TAB PO DAILY, #14 TAB 05/12/25 Emtricitabine/Rilpivirine/Teno (Odefsey 200-25-25 mg) 1 Tab Tab, 1 TAB PO DAILY, TAB 05/12/25 Current Medications Current Medications Medications (Trade) Dose Ordered Sig/Ten Route PRN Reason Start Time Stop Time Status Last Admin Acetaminophen/ Hydrocodone Bitart ([place] 5/325MG Tab) 1 tab Q4HP PRN PO MODERATE PAIN (4-6 PAIN SCALE) 05/11/25 21:00 05/12/25 15:05 Ondansetron HCl (Zofran) 4 mg Q4HP PRN IV NAUSEA / VOMITING 05/11/25 21:00 Acetaminophen (Tylenol Tablet) 650 mg Q6HP PRN PO PAIN SCALE 1-3 OR TEMP>100.4 05/11/25 21:00 Enoxaparin Sodium (Lovenox) 40 mg DAILY SC 05/11/25 21:00 05/11/25 21:50 Diagnostic Test (Pha) (Accu-Chek Comfort Curve T) 1 strip ACHS 05/11/25 22:00 05/12/25 11:30 Insulin Human Regular (InsuLIN R) ACHS SC 05/11/25 22:00 Dextrose 50 ml UD PRN IV Blood Sugar LESS THAN 60 05/11/25 21:00 Losartan Potassium (Cozaar Tablet) 25 mg DAILY PO 05/12/25 10:00 05/12/25 11:06 Allopurinol (Zyloprim Tablet) 100 mg DAILY PO 05/12/25 10:00 05/12/25 11:06 Hydromorphone HCl (Dilaudid Injection) 0.25 mg Q4HPRN PRN IV SEVERE PAIN (7-10 PAIN SCALE) 05/11/25 21:00 05/11/25 21:52 Carvedilol (Coreg Tablet) 6.25 mg Q12HR PO 05/12/25 10:00 05/12/25 11:07 Hydralazine HCl (Apresoline Injection) 10 mg Q6HP PRN IV SBP>160 05/11/25 21:00 Patient Own Medication 1 DAILY PO 05/13/25 10:00 Colchicine (Colcrys) 0.6 mg DAILY PO 05/13/25 10:00 Acyclovir (Zovirax Tablet) 800 mg TID PO 05/12/25 22:00 Docusate Sodium (Colace Capsule) 100 mg BIDPRN PRN PO FOR CONSTIPATION 05/12/25 15:00 Review of Systems 10 point review of systems negative except as per HPI Vital Signs Vital Signs Date Time Temp Pulse Resp B/P (MAP) Pulse Ox O2 Delivery O2 Flow Rate FiO2 05/12/25 13:00 99.8 75 18 139/69 (92) 95 99.8 05/11/25 23:37 Room Air* 0 21 Physical Exam General appearance: A&O x4 in no acute distress HEENT: Normal ENT inspection, pharynx normal, TMs normal Neck: Full range of motion, nontender, normal inspection Respiratory: Chest nontender, without accessory muscle use, no respiratory distress Cardiovascular: No edema, no JVD, normal peripheral pulses Gastrointestinal: Soft, nontender, no organomegaly. Musculoskeletal: Right ankle range of motion grossly limited with pain on slight movement, no calf tenderness, normal capillary refill, moderate diffuse distal edema, neurovascularly intact. Skin: Dry, normal color, warm Lymphatic: No adenopathy Labs/Diagnostic Data Labs Test 05/12/25 06:02 05/12/25 05:21 05/11/25 17:56 05/11/25 17:09 Range/Units POC Glucose 196 H 70-106 mg/dl White Blood Count 6.9 4.4-10.8 10^3/uL Red Blood Count 4.14 4.0-5.20 10^6/uL Hemoglobin 14.2 12.2-16.2 g/dL Hematocrit 40.4 36.0-46.0 % Mean Corpuscular Volume 97.5 80.0-100.0 fL Mean Corpuscular Hemoglobin 34.3 H 28.0-32.0 pg Mean Corpuscular Hemoglobin Concent 35.2 32.0-36.0 g/dL Red Cell Distribution Width 12.6 11.8-14.3 % Platelet Count 180 140-450 10^3/uL Mean Platelet Volume 7.7 6.9-10.8 fL Neutrophils (%) (Auto) 71.2 37.0-80.0 % Lymphocytes (%) (Auto) 18.5 10.0-50.0 % Monocytes (%) (Auto) 7.3 0.0-12.0 % Eosinophils (%) (Auto) 2.4 0.0-7.0 % Basophils (%) (Auto) 0.6 0.0-2.0 % Neutrophils # (Auto) 4.9 1.6-8.6 10 ^3/uL Lymphocytes # (Auto) 1.3 0.4-5.4 10 ^3/uL Monocytes # (Auto) 0.5 0-1.3 10 ^3/uL Eosinophils # (Auto) 0.2 0-0.8 10 ^3/uL Basophils # (Auto) 0 0-0.2 10 ^3/uL Nucleated Red Blood Cells 0.0 % Sodium Level 140 136-145 mmol/L Potassium Level 3.9 3.5-5.1 mmol/L Chloride Level 102 98-107 mmol/L Carbon Dioxide Level 29 20-31 mmol/L Anion Gap 9 5-15 Blood Urea Nitrogen 17 9-23 mg/dL Creatinine 0.90 0.550-1.02 mg/dL Glomerular Filtration Rate Calc 65 >90 mL/min BUN/Creatinine Ratio 18.9 10.0-20.0 Serum Glucose 207 H 74-106 mg/dL Hemoglobin A1c 8.0 H <5.7 % A1C Calcium Level 8.9 8.7-10.4 mg/dL Total Bilirubin 0.9 0.2-1.0 mg/dL Aspartate Amino Transferase (AST) 23 13-40 U/L Alanine Aminotransferase (ALT) 27 7-40 U/L Alkaline Phosphatase 87 46-116 U/L Total Protein 6.9 5.7-8.2 g/dL Albumin 4.1 3.2-4.8 g/dL Magnesium Level 2.2 1.6-2.6 mg/dL Troponin I High Sensitivity 6 </=34 ng/L Urine Color Colorless Yellow Urine Clarity Clear Clear Urine pH 6.5 5.0-9.0 Urine Specific [place] 1.008 1.001-1.035 Urine Protein Negative Negative Urine Ketones Negative Negative Urine Blood Negative Negative /uL Urine Nitrite Negative Negative Urine Bilirubin Negative Negative Urine Urobilinogen Normal Negative mg/dL Urine Leukocyte Esterase Negative Negative /uL Urine RBC 1 0 - 4 /hpf Urine Microscopic WBC 3 0-5 /HPF Urine Squamous Epithelial Cells Few <5 /hpf Urine Bacteria Few H None Seen /hpf Urine Glucose 2+ H Normal mg/dL Urine Opiates Screen Neg NEGATIVE Urine Fentanyl Screen Neg NEGATIVE Urine Barbiturates Screen Neg NEGATIVE Urine Phencyclidine Screen Neg NEGATIVE Urine Amphetamines Screen Neg NEGATIVE Urine Benzodiazepines Screen Neg NEGATIVE Urine Cocaine Screen Neg NEGATIVE Urine Cannabinoids Screen Neg NEGATIVE Test 05/11/25 16:08 Range/Units Lactic Acid Level 1.3 0.4-2.0 mmol/L Creatine Kinase 122 34-145 U/L Microbiology Date/Time Source Procedure Growth Status 05/11/25 17:09 Voided Urine Urine Culture - Preliminary Resulted Right ankle x-ray reviewed and demonstrated: No radiographic evidence for acute fracture or dislocation. Osteopenia. Diffuse right ankle soft tissue edema. [id number] degenerate changes of the right hindfoot. Assessment Right ankle sprain Plan/Recommendation I had a very lengthy discussion with the patient and after discussing her case and reviewing her imaging studies with Dr. Brown we have recommended against any surgical intervention at this time given her x-ray findings to the not reveal any acute fractures and her extensive medical history making her at an bear increased risk for complications for any surgical intervention. I advised the patient to continue with conservative treatment and place the patient in a Cam boot and advised her to remain nonweightbearing for four weeks and then partial weight-bearing for two weeks then gradually weight-bearing as tolerated. I advised the patient to follow up with our office on an outpatient basis for further evaluation and treatment. Patient understood and agreed. Thank for allowing us to participate in the care of your patient. Plan discussed with: Patient MARVIN FRAZIER May 12, 2025 16:35
[2025-05-13 13:00] VITALS: BP 126/66; PULSE 68; RESP 18; TEMP 98; O2SAT 96
--- NOTE | 2025-05-13 14:54 | DVHPN2 ---
Progress Note Date Seen: May 13, 2025 Medical Necessity Reason Pt with a Central, PICC or Fol: No Subjective Patient reports: No new complaints Changes from previous H/P or p: No Changes Objective vital signs Vital Sign Date Time Temp Pulse Resp B/P (MAP) Pulse Ox O2 Delivery O2 Flow Rate FiO2 05/13/25 09:53 68 126/66 05/13/25 09:00 99.5 16 92 99.5 05/13/25 08:00 Room Air* 0 21 Total Intake and Output 05/12/25 05/12/25 05/13/25 15:00 23:00 07:00 Intake Total 480 ml 340 ml Output Total 200 ml 500 ml Balance 280 ml -160 ml medications Current Medications Medications Dose Ordered Sig/Ten Route Start Time Stop Time Status Last Admin Dose Admin Acetaminophen/ Hydrocodone Bitart 1 tab Q4HP PRN PO 05/11/25 21:00 05/13/25 13:23 1 TAB Ondansetron HCl 4 mg Q4HP PRN IV 05/11/25 21:00 Acetaminophen 650 mg Q6HP PRN PO 05/11/25 21:00 Enoxaparin Sodium 40 mg DAILY SC 05/11/25 21:00 05/11/25 21:50 40 MG Diagnostic Test (Pha) 1 strip ACHS 05/11/25 22:00 05/13/25 11:30 1 STRIP Insulin Human Regular ACHS SC 05/11/25 22:00 Dextrose 50 ml UD PRN IV 05/11/25 21:00 Losartan Potassium 25 mg DAILY PO 05/12/25 10:00 05/12/25 11:06 25 MG Allopurinol 100 mg DAILY PO 05/12/25 10:00 05/13/25 08:52 100 MG Hydromorphone HCl 0.25 mg Q4HPRN PRN IV 05/11/25 21:00 05/12/25 22:33 0.25 MG Carvedilol 6.25 mg Q12HR PO 05/12/25 10:00 05/13/25 08:53 6.25 MG Hydralazine HCl 10 mg Q6HP PRN IV 05/11/25 21:00 Patient Own Medication 1 DAILY PO 05/13/25 10:00 05/13/25 10:04 1 Colchicine 0.6 mg DAILY PO 05/13/25 10:00 05/13/25 08:53 0.6 MG Acyclovir 800 mg TID PO 05/12/25 22:00 Docusate Sodium 100 mg BIDPRN PRN PO 05/12/25 15:00 Examination General appearance: A&O x4 in no acute distress HEENT: Normal ENT inspection, pharynx normal, TMs normal Neck: Full range of motion, nontender, normal inspection Respiratory: Chest nontender, without accessory muscle use, no respiratory distress Cardiovascular: No edema, no JVD, normal peripheral pulses Gastrointestinal: Soft, nontender, no organomegaly. Musculoskeletal: Right ankle range of motion grossly limited with pain on slight movement, no calf tenderness, normal capillary refill, moderate diffuse distal edema, neurovascularly intact. laboratory and microbiology Laboratory Tests 05/13/25 03:55 Test 05/13/25 03:55 Range/Units Serum Glucose 187 H 74-106 mg/dL Microbiology Date/Time Source Procedure Growth Status 05/11/25 17:09 Voided Urine Urine Culture - Preliminary Resulted Problem List/Assessment/Plan Problem List/Assessment/Plan #1 s/p fall with right ankle pain ?sprain: ortho eval #2 dm: ssi #3 hypertensive urgency: cont meds #4 HIV: cont meds #5 obesity\ #6 gout #7 wheel chair bound/contractures #8 gallstones PT OT to assess for home health versus placement Ortho recs appreciated Cam boot and advised her to remain nonweightbearing for four weeks and then partial weight-bearing for two weeks then gradually weight-bearing as tolerated. outpatient ortho follow up Plan discussed with: Patient Date of Service: May 13, 2025 Billing Provider: KENNEDI ARIAS MD Common Visit Codes: [id number] SAME DATE (HIGH) KENNEDI ARIAS MD May 13, 2025 14:53
[2025-05-13 17:00] VITALS: BP 172/71; PULSE 64; RESP 17; TEMP 97.9; O2SAT 94
[2025-05-13] MEDS: hydrALAZINE HCL 20 MG/ML VL IV PRN (19:34)
[2025-05-13] MEDS: ONDANSETRON HCL 4 MG/2 ML VIAL IV PRN (20:26)
[2025-05-13 21:00] VITALS: BP 171/94; PULSE 69; RESP 18; TEMP 98.1; O2SAT 96
[2025-05-14 01:00] VITALS: BP 144/85; PULSE 72; RESP 19; TEMP 97.8; O2SAT 93
[2025-05-14 04:51] VITALS: BP 143/81; PULSE 79; RESP 18; TEMP 98.7; O2SAT 97
[2025-05-14 08:35] VITALS: BP 143/71; PULSE 67; RESP 17; TEMP 98.4; O2SAT 91
[2025-05-14 11:55] LABS: Nucleated Red Blood Cells % 0.1 %
[2025-05-14 11:57] LABS: Hematocrit 38.5 % (36.0-46.0); Hemoglobin 13.7 g/dL (12.2-16.2); Mean Corpuscular Hemoglobin 34.6 pg (28.0-32.0); Mean Corpuscular Volume 97.3 fL (80.0-100.0)
[2025-05-14 12:15] LABS: Alanine Aminotransferase 24 U/L (7-40); Albumin 3.9 g/dL (3.2-4.8); Alkaline Phosphatase 71 U/L (46-116); Anion Gap 8 (5-15); BUN/Creatinine Ratio 21.0 (10.0-20.0); Bilirubin, Total 0.7 mg/dL (0.2-1.0); Blood Urea Nitrogen 17 mg/dL (9-23); Calcium 8.5 mg/dL (8.7-10.4); Carbon Dioxide 26 mmol/L (20-31); Chloride 103 mmol/L (98-107); Glucose 190 mg/dL (74-106); Potassium 4.1 mmol/L (3.5-5.1); Sodium 137 mmol/L (136-145); Total Protein 6.6 g/dL (5.7-8.2)
[2025-05-14 13:00] VITALS: BP 132/67; PULSE 69; RESP 16; TEMP 98; O2SAT 90
--- NOTE | 2025-05-14 15:25 | DVHPN2 ---
Progress Note Date Seen: May 14, 2025 Medical Necessity Reason Pt with a Central, PICC or Fol: No Subjective Patient reports: No new complaints Changes from previous H/P or p: No Changes Objective vital signs Vital Sign Date Time Temp Pulse Resp B/P (MAP) Pulse Ox O2 Delivery O2 Flow Rate FiO2 05/14/25 13:00 98.0 69 16 132/67 (88) 90 98.0 05/14/25 08:12 Room Air* 0 21 Total Intake and Output 05/13/25 05/13/25 05/14/25 15:00 23:00 07:00 Intake Total 940 ml 540 ml Output Total 1050 ml 600 ml Balance -110 ml -60 ml medications Current Medications Medications Dose Ordered Sig/Ten Route Start Time Stop Time Status Last Admin Dose Admin Acetaminophen/ Hydrocodone Bitart 1 tab Q4HP PRN PO 05/11/25 21:00 05/13/25 13:23 1 TAB Ondansetron HCl 4 mg Q4HP PRN IV 05/11/25 21:00 05/13/25 20:26 4 MG Acetaminophen 650 mg Q6HP PRN PO 05/11/25 21:00 Enoxaparin Sodium 40 mg DAILY SC 05/11/25 21:00 05/14/25 09:05 40 MG Diagnostic Test (Pha) 1 strip ACHS 05/11/25 22:00 05/14/25 11:48 1 STRIP Insulin Human Regular ACHS SC 05/11/25 22:00 05/14/25 11:50 4 UNITS Dextrose 50 ml UD PRN IV 05/11/25 21:00 Losartan Potassium 25 mg DAILY PO 05/12/25 10:00 05/14/25 08:58 25 MG Allopurinol 100 mg DAILY PO 05/12/25 10:00 05/14/25 08:58 100 MG Hydromorphone HCl 0.25 mg Q4HPRN PRN IV 05/11/25 21:00 05/13/25 22:51 0.25 MG Carvedilol 6.25 mg Q12HR PO 05/12/25 10:00 05/14/25 08:57 6.25 MG Hydralazine HCl 10 mg Q6HP PRN IV 05/11/25 21:00 05/13/25 19:34 10 MG Patient Own Medication 1 DAILY PO 05/13/25 10:00 11/1/25 08:59 1 Colchicine 0.6 mg DAILY PO 05/13/25 10:00 05/14/25 08:58 0.6 MG Acyclovir 800 mg TID PO 05/12/25 22:00 05/14/25 13:41 800 MG Docusate Sodium 100 mg BIDPRN PRN PO 05/12/25 15:00 Examination General appearance: A&O x4 in no acute distress HEENT: Normal ENT inspection, pharynx normal, TMs normal Neck: Full range of motion, nontender, normal inspection Respiratory: Chest nontender, without accessory muscle use, no respiratory distress Cardiovascular: No edema, no JVD, normal peripheral pulses Gastrointestinal: Soft, nontender, no organomegaly. Musculoskeletal: Right ankle range of motion grossly limited with pain on slight movement, no calf tenderness, normal capillary refill, moderate diffuse distal edema, neurovascularly intact. laboratory and microbiology Laboratory Tests 05/14/25 11:40 Test 05/14/25 11:40 Range/Units Serum Glucose 190 H 74-106 mg/dL Microbiology Date/Time Source Procedure Growth Status 05/11/25 17:09 Voided Urine Urine Culture - Final Escherichia coli Complete Labs and/or images reviewed: Labs reviewed by me, Image(s) reviewed by me Problem List/Assessment/Plan Problem List/Assessment/Plan #1 s/p fall with right ankle pain ?sprain: ortho eval #2 dm: ssi #3 hypertensive urgency: cont meds #4 HIV: cont meds #5 obesity\ #6 gout #7 wheel chair bound/contractures #8 gallstones PT OT to assess for home health PT. Patient does not want to go to SNF Ortho recs appreciated Cam boot and advised her to remain nonweightbearing for four weeks and then partial weight-bearing for two weeks then gradually weight-bearing as tolerated. outpatient ortho follow up Plan discussed with: Patient Date of Service: May 14, 2025 Billing Provider: KENNEDI ARIAS MD Common Visit Codes: [id number] SAME DATE (MOD) KENNEDI ARIAS MD May 14, 2025 15:25
[2025-05-14 16:41] VITALS: BP 140/64; PULSE 76; RESP 17; TEMP 98.2; O2SAT 90
[2025-05-14 21:00] VITALS: BP 141/85; PULSE 76; RESP 18; TEMP 99.3; O2SAT 95
[2025-05-14] MEDS: CIPROFLOXACIN 400MG/200ML 200 ML IV SCH (21:16)
[2025-05-15 05:00] VITALS: BP 128/68; PULSE 67; RESP 18; TEMP 98.4; O2SAT 90
[2025-05-15 08:00] VITALS: PULSE 70; RESP 18; O2SAT 90
[2025-05-15 09:00] VITALS: BP 168/117; PULSE 70; RESP 18; TEMP 98.5; O2SAT 90
[2025-05-15 13:00] VITALS: BP 169/95; PULSE 66; RESP 18; TEMP 97.8; O2SAT 92
--- NOTE | 2025-05-15 14:28 | DVHPN2 ---
Progress Note Date Seen: May 15, 2025 Medical Necessity Reason Pt with a Central, PICC or Fol: No Subjective Patient reports: No new complaints (Patient states that she went to go home. This time no safe discharge due to patient does not have anyone at home. social work consult for safe discharge) Objective vital signs Vital Sign Date Time Temp Pulse Resp B/P (MAP) Pulse Ox O2 Delivery O2 Flow Rate FiO2 05/15/25 13:00 97.8 66 18 169/95 (119) 92 97.8 05/15/25 08:00 Room Air* 0 21 Total Intake and Output 05/14/25 05/14/25 05/15/25 15:00 23:00 07:00 Intake Total 1000 ml 230 ml Output Total 1450 ml 550 ml Balance -450 ml -320 ml medications Current Medications Medications Dose Ordered Sig/Ten Route Start Time Stop Time Status Last Admin Dose Admin Acetaminophen/ Hydrocodone Bitart 1 tab Q4HP PRN PO 05/11/25 21:00 05/14/25 17:49 1 TAB Ondansetron HCl 4 mg Q4HP PRN IV 05/11/25 21:00 05/13/25 20:26 4 MG Acetaminophen 650 mg Q6HP PRN PO 05/11/25 21:00 Enoxaparin Sodium 40 mg DAILY SC 05/11/25 21:00 05/15/25 09:59 40 MG Diagnostic Test (Pha) 1 strip ACHS 05/11/25 22:00 05/15/25 05:50 1 STRIP Insulin Human Regular ACHS SC 05/11/25 22:00 05/15/25 11:58 3 UNITS Dextrose 50 ml UD PRN IV 05/11/25 21:00 Losartan Potassium 25 mg DAILY PO 05/12/25 10:00 05/15/25 09:58 25 MG Allopurinol 100 mg DAILY PO 05/12/25 10:00 05/15/25 09:58 100 MG Hydromorphone HCl 0.25 mg Q4HPRN PRN IV 05/11/25 21:00 05/15/25 01:10 0.25 MG Carvedilol 6.25 mg Q12HR PO 05/12/25 10:00 05/15/25 09:58 6.25 MG Hydralazine HCl 10 mg Q6HP PRN IV 05/11/25 21:00 05/13/25 19:34 10 MG Patient Own Medication 1 DAILY PO 05/13/25 10:00 05/15/25 09:59 1 Colchicine 0.6 mg DAILY PO 05/13/25 10:00 05/15/25 09:59 0.6 MG Acyclovir 800 mg TID PO 05/12/25 22:00 05/15/25 05:50 800 MG Docusate Sodium 100 mg BIDPRN PRN PO 05/12/25 15:00 Ciprofloxacin 200 ml @ 200 mls/hr Q12HR IV 05/14/25 22:00 05/15/25 09:56 200 MLS/HR Examination General appearance: A&O x4 in no acute distress HEENT: Normal ENT inspection, pharynx normal, TMs normal Neck: Full range of motion, nontender, normal inspection Respiratory: Chest nontender, without accessory muscle use, no respiratory distress Cardiovascular: No edema, no JVD, normal peripheral pulses Gastrointestinal: Soft, nontender, no organomegaly. Musculoskeletal: Right ankle range of motion grossly limited with pain on slight movement, no calf tenderness, normal capillary refill, moderate diffuse distal edema, neurovascularly intact. laboratory and microbiology Laboratory Tests 05/14/25 11:40 Test 05/14/25 11:40 Range/Units Serum Glucose 190 H 74-106 mg/dL Microbiology Date/Time Source Procedure Growth Status 05/11/25 17:09 Voided Urine Urine Culture - Final Escherichia coli Complete Labs and/or images reviewed: Labs reviewed by me, Image(s) reviewed by me Problem List/Assessment/Plan Problem List/Assessment/Plan #1 s/p fall with right ankle pain ?sprain: ortho eval #2 dm: ssi #3 hypertensive urgency: cont meds #4 HIV: cont meds #5 obesity\ #6 gout #7 wheel chair bound/contractures #8 gallstones PT OT to assess for home health PT. Patient does not want to go to SNF Ortho recs appreciated Cam boot and advised her to remain nonweightbearing for four weeks and then partial weight-bearing for two weeks then gradually weight-bearing as tolerated. outpatient ortho follow up HH set up but due to no one at home, high risk for fall, social work consult for safe discharge Plan discussed with: Patient My Orders My Orders Orders - KENNEDI ARIAS MD Procedure Category Date Status Time Ciprofloxacin PHA 05/14/25 In Process 400mg/200ml (Cipro Iv) 22:00 * Property Management Supervisor CONS 05/14/25 Transmitted Consult Dietary Evaluation Review Recommendations by RD: Dietary education by RD Comments: 1) Continue 45g CCHO cardiac diet 2) Refer to outpatient RD/[facility] for diabetes counseling and weight management 3) Follow-up with infectious disease and cardiology 4) Continue to monitor I&O, labs, and skin integrity Expected Outcomes/Goals: 1) appetite and labs to improve 2) gradual wt loss 3) f/u in 3-5 days Date of Service: May 15, 2025 Billing Provider: KENNEDI ARIAS MD Common Visit Codes: [id number] SAME DATE (MOD) KENNEDI ARIAS MD May 15, 2025 14:28
[2025-05-15 17:00] VITALS: BP 208/106; PULSE 73; RESP 17; TEMP 98.9; O2SAT 94
[2025-05-15 21:00] VITALS: BP 146/77; PULSE 81; RESP 18; TEMP 98.2; O2SAT 92
[2025-05-16] VITALS (7 sets, daily range): BP systolic 137–161; BP diastolic 79–94; PULSE 68–74; RESP 17–20; TEMP 97.1–98.4; O2SAT 93–97
--- NOTE | 2025-05-16 11:18 | DVHDS2 ---
Discharge Summary Date of Admission May 11, 2025 at 20:54 Date of Discharge: May 16, 2025 Labs/Diagnostic Data: Laboratory Results Test 05/15/25 21:54 05/14/25 11:40 05/13/25 03:55 05/12/25 05:21 POC Glucose 263 mg/dl (70-106) White Blood Count 7.8 10^3/uL (4.4-10.8) Red Blood Count 3.96 10^6/uL (4.0-5.20) Hemoglobin 13.7 g/dL (12.2-16.2) Hematocrit 38.5 % (36.0-46.0) Mean Corpuscular Volume 97.3 fL (80.0-100.0) Mean Corpuscular Hemoglobin 34.6 pg (28.0-32.0) Mean Corpuscular Hemoglobin Concent 35.5 g/dL (32.0-36.0) Red Cell Distribution Width 12.2 % (11.8-14.3) Platelet Count 186 10^3/uL (140-450) Mean Platelet Volume 7.9 fL (6.9-10.8) Neutrophils (%) (Auto) 72.0 % (37.0-80.0) Lymphocytes (%) (Auto) 17.8 % (10.0-50.0) Monocytes (%) (Auto) 7.8 % (0.0-12.0) Eosinophils (%) (Auto) 1.7 % (0.0-7.0) Basophils (%) (Auto) 0.7 % (0.0-2.0) Neutrophils # (Auto) 5.7 10 ^3/uL (1.6-8.6) Lymphocytes # (Auto) 1.4 10 ^3/uL (0.4-5.4) Monocytes # (Auto) 0.6 10 ^3/uL (0-1.3) Eosinophils # (Auto) 0.1 10 ^3/uL (0-0.8) Basophils # (Auto) 0.1 10 ^3/uL (0-0.2) Nucleated Red Blood Cells 0.1 % Sodium Level 137 mmol/L (136-145) Potassium Level 4.1 mmol/L (3.5-5.1) Chloride Level 103 mmol/L (98-107) Carbon Dioxide Level 26 mmol/L (20-31) Anion Gap 8 (5-15) Blood Urea Nitrogen 17 mg/dL (9-23) Creatinine 0.81 mg/dL (0.550-1.02) Glomerular Filtration Rate Calc 74 mL/min (>90) BUN/Creatinine Ratio 21.0 (10.0-20.0) Serum Glucose 190 mg/dL (74-106) Calcium Level 8.5 mg/dL (8.7-10.4) Total Bilirubin 0.7 mg/dL (0.2-1.0) Aspartate Amino Transferase (AST) 30 U/L (13-40) Alanine Aminotransferase (ALT) 24 U/L (7-40) Alkaline Phosphatase 71 U/L (46-116) Total Protein 6.6 g/dL (5.7-8.2) Albumin 3.9 g/dL (3.2-4.8) Prothrombin Time 10.4 sec (9.3-11.8) Prothrombin Time INR 0.98 (0.9-1.15) Activated Partial Thromboplast Time 28.9 SEC (24.5-34.5) Hemoglobin A1c 8.0 % A1C (<5.7) Test 05/11/25 17:56 05/11/25 17:09 05/11/25 16:08 Magnesium Level 2.2 mg/dL (1.6-2.6) Troponin I High Sensitivity 6 ng/L (</=34) Urine Color Colorless (Yellow) Urine Clarity Clear (Clear) Urine pH 6.5 (5.0-9.0) Urine Specific [place] 1.008 (1.001-1.035) Urine Protein Negative (Negative) Urine Ketones Negative (Negative) Urine Blood Negative /uL (Negative) Urine Nitrite Negative (Negative) Urine Bilirubin Negative (Negative) Urine Urobilinogen Normal mg/dL (Negative) Urine Leukocyte Esterase Negative /uL (Negative) Urine RBC 1 /hpf (0 - 4) Urine Microscopic WBC 3 /HPF (0-5) Urine Squamous Epithelial Cells Few /hpf (<5) Urine Bacteria Few /hpf (None Seen) Urine Glucose 2+ mg/dL (Normal) Urine Opiates Screen Neg (NEGATIVE) Urine Fentanyl Screen Neg (NEGATIVE) Urine Barbiturates Screen Neg (NEGATIVE) Urine Phencyclidine Screen Neg (NEGATIVE) Urine Amphetamines Screen Neg (NEGATIVE) Urine Benzodiazepines Screen Neg (NEGATIVE) Urine Cocaine Screen Neg (NEGATIVE) Urine Cannabinoids Screen Neg (NEGATIVE) Lactic Acid Level 1.3 mmol/L (0.4-2.0) Creatine Kinase 122 U/L (34-145) Other Laboratory Tests 05/14/25 11:40 Brief Hx & Hospital Course: see dictated note Condition at Discharge: Fair Final Diagnosis/Problems List fall Discharge Disposition: Home with Health Services Discharge Instruct/Medications Diet: Cardiac 2g Na,low cholest Activity: See Comment Activity comment: non weight bearing right leg Follow Up/Referral: fu wi pcp/ortho Medications: resume home meds script to pharmacy Scheduled Acyclovir (Zovirax Tablet), 800 MG PO TID, (Reported) Carvedilol (Carvedilol), 6.25 MG PO BID, (Reported) Colchicine (Colchicine), 0.6 MG PO DAILY, (Reported) Emtricitabine/Rilpivirine/Teno (Odefsey 200-25-25 mg), 1 TAB PO DAILY, (Reported) Fluconazole (Fluconazole), 1 TAB PO DAILY, (Reported) Losartan Potassium (Losartan Potassium), 1 TAB PO DAILY, (Reported) Magnesium Oxide (Magnesium Oxide), 1 TAB PO PRN, (Reported) Methenamine Hippurate (Methenamine Hippurate), 1 GM PO BID, (Reported) Scheduled PRN Ibuprofen (Ibuprofen), 1 TAB PO Q8HR PRN for PAIN, (Reported) Discharge Statement: "Patient was advised to return to the ER or call 911 if any headaches, dizziness, shortness of breath, chest pain, abdominal pain, bleeding, fevers, or worsening of medical condition. Patient was counseled about treatment plan, medications, possible side effects, patientverbalized understanding. All questions were answered to the best of my ability. This discharge took greater then 30 minutes in planning, reviewing documentation, counseling the patient, and discussing with other team members." DME: Diagnosis: Severe right ankle sprain, unable to bear weight for four weeks and requires assistance with ambulation ASSESSMENT ASSESSMENT Assessment fall Date of Service: May 16, 2025 Billing Provider: BETTY LIN MD Common Visit Codes: [id number] DISCH DAY >30min BETTY LIN MD May 16, 2025 11:18
[2025-05-16] MEDS ORDERED: TRAM-626 PO (11:19)
[2025-05-16] MEDS ORDERED: CIPR250T26 PO (11:24)
[2025-05-16] MEDS ORDERED: ZOFR4T PO (11:26)
--- NOTE | 2025-05-16 11:31 | DVHDS ---
DATE OF DISCHARGE: 05/16/2025 HISTORY OF PRESENT ILLNESS: The patient is a 79-year-old lady who was admitted with history of pain in the right ankle after a fall. The patient has a history of HIV, type 2 diabetes, hypertension, macular degeneration and gout. HOSPITAL COURSE: The patient had an ankle x-ray that showed no acute fracture. The patient had a CT of the head that showed no acute abnormality. A CT of the abdomen and pelvis showed cholelithiasis with [id number] colonic stool burden. The patient had UTI with E. coli. The patient was seen in Orthopedic consult and it was recommended that the patient have conservative treatment with a CAM boot and nonweightbearing for 4 weeks. The patient will now be discharged home to resume her home medications as well as to be on tramadol p.r.n. for pain and ciprofloxacin 250 mg b.i.d. for 5 days. She will follow up with her primary and with [facility]. The patient will have [facility] for safety and RN. FINAL DIAGNOSES: * Right ankle sprain status post fall. * UTI with E. coli. * HIV. * Hypertensive urgency. * Diabetes mellitus. * Obesity. * Gout. * Gallstones. * Wheelchair bound with contractures. Time spent in discharge planning and review of plan with the patient and nursing was 41 minutes. MD ROBER Blood/FRANCISCA TID: [id number] RECEIPT: [id number]
[2025-05-17] VITALS (7 sets, daily range): BP systolic 133–152; BP diastolic 71–110; PULSE 64–75; RESP 17–20; TEMP 97.8–98.9; O2SAT 91–98
--- NOTE | 2025-05-17 11:05 | DVHPN2 ---
Progress Note Date Seen: May 17, 2025 Medical Necessity Reason Pt with a Central, PICC or Fol: No Subjective Patient reports: No new complaints Review of Systems: HEENT:Normal, CVS:Normal, RESPIRATORY:Normal, GI:Normal, :Normal, MSK:Normal, NEURO:Normal Objective vital signs Vital Sign Date Time Temp Pulse Resp B/P (MAP) Pulse Ox O2 Delivery O2 Flow Rate FiO2 05/17/25 09:49 151/85 05/17/25 09:48 65 05/17/25 09:00 98.4 20 91 98.4 05/17/25 08:00 Room Air* 0 21 Total Intake and Output 05/16/25 05/16/25 05/17/25 15:00 23:00 07:00 Intake Total 250 ml 400 ml Balance 250 ml 400 ml medications Current Medications Medications Dose Ordered Sig/Ten Route Start Time Stop Time Status Last Admin Dose Admin Acetaminophen/ Hydrocodone Bitart 1 tab Q4HP PRN PO 05/11/25 21:00 05/14/25 17:49 1 TAB Ondansetron HCl 4 mg Q4HP PRN IV 05/11/25 21:00 05/16/25 22:32 4 MG Acetaminophen 650 mg Q6HP PRN PO 05/11/25 21:00 Enoxaparin Sodium 40 mg DAILY SC 05/11/25 21:00 05/17/25 09:48 40 MG Diagnostic Test (Pha) 1 strip ACHS 05/11/25 22:00 05/17/25 06:52 1 STRIP Insulin Human Regular ACHS SC 05/11/25 22:00 05/17/25 06:01 2 UNITS Dextrose 50 ml UD PRN IV 05/11/25 21:00 Losartan Potassium 25 mg DAILY PO 05/12/25 10:00 05/17/25 09:49 25 MG Allopurinol 100 mg DAILY PO 05/12/25 10:00 05/17/25 09:48 100 MG Hydromorphone HCl 0.25 mg Q4HPRN PRN IV 05/11/25 21:00 05/16/25 22:32 0.25 MG Carvedilol 6.25 mg Q12HR PO 05/12/25 10:00 05/17/25 09:48 6.25 MG Hydralazine HCl 10 mg Q6HP PRN IV 05/11/25 21:00 05/15/25 16:16 10 MG Patient Own Medication 1 DAILY PO 05/13/25 10:00 05/17/25 09:49 1 Colchicine 0.6 mg DAILY PO 05/13/25 10:00 05/17/25 09:48 0.6 MG Acyclovir 800 mg TID PO 05/12/25 22:00 05/17/25 06:00 800 MG Docusate Sodium 100 mg BIDPRN PRN PO 05/12/25 15:00 Ciprofloxacin 200 ml @ 200 mls/hr Q12HR IV 05/14/25 22:00 05/17/25 09:47 200 MLS/HR Examination: GENERAL:Normal, HEENT:Normal, NECK:Normal, LUNGS:Normal, CVS:Normal, ABDOMEN:Normal, MSK:Normal, SKIN:Normal, NEURO:Normal, :Normal laboratory and microbiology Laboratory Tests 05/14/25 11:40 Test 05/14/25 11:40 Range/Units Serum Glucose 190 H 74-106 mg/dL Microbiology Date/Time Source Procedure Growth Status 05/11/25 17:09 Voided Urine Urine Culture - Final Escherichia coli Complete Problem List/Assessment/Plan Problem List/Assessment/Plan #1 s/p fall with right ankle pain ?sprain: ortho eval #2 dm: ssi #3 hypertensive urgency: cont meds #4 HIV: cont meds #5 obesity\ #6 gout #7 wheel chair bound/contractures #8 gallstones #9 uti with e coli: cipro advance care planning- full code- time spent 18 mins await dc planning Plan discussed with: Patient My Orders My Orders Orders - BETTY LIN MD Procedure Category Date Status Time * [facility] CONS 05/16/25 Transmitted Consult Discharge DISCHARGE 05/16/25 Transmitted 11:15 Discontinue Johansen GOLDIE 05/16/25 In Process Catheter 11:15 Ciprofloxacin Tablet PHA 05/17/25 Transmitted (Cipro Tablet) 22:00 Dietary Evaluation Review Recommendations by RD: Dietary education by RD Comments: 1) Continue 45g [facility] cardiac diet 2) Refer to outpatient RD/[facility] for diabetes counseling and weight management 3) Follow-up with infectious disease and cardiology 4) Continue to monitor I&O, labs, and skin integrity Expected Outcomes/Goals: 1) appetite and labs to improve 2) gradual wt loss 3) f/u in 3-5 days Date of Service: May 17, 2025 Billing Provider: BETTY LIN MD Common Visit Codes: [id number] INP/OBS CARE(HIGH) BETTY LIN MD May 17, 2025 11:05
[2025-05-17] MEDS: CIPROFLOXACIN HYDROCHLORIDE 250 MG TAB PO SCH (22:07)
[2025-05-18] VITALS (7 sets, daily range): BP systolic 100–170; BP diastolic 54–90; PULSE 65–70; RESP 17–18; TEMP 97.9–98.4; O2SAT 90–97
[2025-05-18] MEDS: MELATONIN 5 MG TAB PO ONE (01:23)
--- NOTE | 2025-05-18 11:17 | DVHPN2 ---
Progress Note Date Seen: May 18, 2025 Medical Necessity Reason Pt with a Central, PICC or Fol: No Subjective Patient reports: No new complaints Review of Systems: HEENT:Normal, CVS:Normal, RESPIRATORY:Normal, GI:Normal, :Normal, MSK:Normal, NEURO:Normal Objective vital signs Vital Sign Date Time Temp Pulse Resp B/P (MAP) Pulse Ox O2 Delivery O2 Flow Rate FiO2 05/18/25 09:30 65 142/83 05/18/25 08:36 98.4 18 92 98.4 05/18/25 08:00 Room Air* 0 21 Total Intake and Output 05/17/25 05/17/25 05/18/25 15:00 23:00 07:00 Intake Total 720 ml 200 ml Balance 720 ml 200 ml medications Current Medications Medications Dose Ordered Sig/Ten Route Start Time Stop Time Status Last Admin Dose Admin Acetaminophen/ Hydrocodone Bitart 1 tab Q4HP PRN PO 05/11/25 21:00 05/18/25 00:51 1 TAB Ondansetron HCl 4 mg Q4HP PRN IV 05/11/25 21:00 05/16/25 22:32 4 MG Acetaminophen 650 mg Q6HP PRN PO 05/11/25 21:00 Enoxaparin Sodium 40 mg DAILY SC 05/11/25 21:00 05/18/25 09:31 40 MG Diagnostic Test (Pha) 1 strip ACHS 05/11/25 22:00 05/18/25 06:18 1 STRIP Insulin Human Regular ACHS SC 05/11/25 22:00 05/18/25 06:17 2 UNITS Dextrose 50 ml UD PRN IV 05/11/25 21:00 Losartan Potassium 25 mg DAILY PO 05/12/25 10:00 05/18/25 09:30 25 MG Allopurinol 100 mg DAILY PO 05/12/25 10:00 05/18/25 09:29 100 MG Hydromorphone HCl 0.25 mg Q4HPRN PRN IV 05/11/25 21:00 05/16/25 22:32 0.25 MG Carvedilol 6.25 mg Q12HR PO 05/12/25 10:00 05/18/25 09:30 6.25 MG Hydralazine HCl 10 mg Q6HP PRN IV 05/11/25 21:00 05/18/25 01:34 10 MG Patient Own Medication 1 DAILY PO 05/13/25 10:00 05/17/25 09:49 1 Colchicine 0.6 mg DAILY PO 05/13/25 10:00 05/18/25 09:29 0.6 MG Acyclovir 800 mg TID PO 05/12/25 22:00 05/18/25 06:16 800 MG Docusate Sodium 100 mg BIDPRN PRN PO 05/12/25 15:00 Ciprofloxacin 250 mg Q12HR PO 05/17/25 22:00 05/18/25 09:30 250 MG Examination: GENERAL:Normal, HEENT:Normal, NECK:Normal, LUNGS:Normal, CVS:Normal, ABDOMEN:Normal, MSK:Normal, SKIN:Normal, NEURO:Normal, :Normal laboratory and microbiology Laboratory Tests 05/14/25 11:40 Test 05/14/25 11:40 Range/Units Serum Glucose 190 H 74-106 mg/dL Microbiology Date/Time Source Procedure Growth Status 05/11/25 17:09 Voided Urine Urine Culture - Final Escherichia coli Complete Problem List/Assessment/Plan Problem List/Assessment/Plan #1 s/p fall with right ankle pain ?sprain: foot boot #2 dm: ssi #3 hypertensive urgency: cont meds #4 HIV: cont meds #5 obesity\ #6 gout #7 wheel chair bound/contractures #8 gallstones #9 uti with e coli: cipro advance care planning- full code- time spent 18 mins await dc planning to snf Plan discussed with: Patient My Orders My Orders Orders - BETTY LIN MD Procedure Category Date Status Time Discharge DISCHARGE 05/17/25 Transmitted 14:21 * [facility] CONS 05/17/25 Transmitted Consult Dietary Evaluation Review Recommendations by RD: Dietary education by RD Comments: 1) Continue 45g [facility] cardiac diet 2) Refer to outpatient RD/[facility] for diabetes counseling and weight management 3) Follow-up with infectious disease and cardiology 4) Continue to monitor I&O, labs, and skin integrity Expected Outcomes/Goals: 1) appetite and labs to improve 2) gradual wt loss 3) f/u in 3-5 days Date of Service: May 18, 2025 Billing Provider: BETTY LIN MD Common Visit Codes: [id number] INP/OBS CARE(HIGH) BETTY LIN MD May 18, 2025 11:17
[2025-05-18] MEDS ORDERED: MELATONIN 5 MG TAB PO ONE (22:00)
[2025-05-19] VITALS (7 sets, daily range): BP systolic 137–168; BP diastolic 74–96; PULSE 63–67; RESP 17–20; TEMP 97.9–98.5; O2SAT 91–97
--- NOTE | 2025-05-19 15:03 | DVHPN2 ---
Progress Note Date Seen: May 19, 2025 Medical Necessity Reason Pt with a Central, PICC or Fol: No Subjective Patient reports: No new complaints Review of Systems: HEENT:Normal, CVS:Normal, RESPIRATORY:Normal, GI:Normal, :Normal, MSK:Normal, NEURO:Normal Objective vital signs Vital Sign Date Time Temp Pulse Resp B/P (MAP) Pulse Ox O2 Delivery O2 Flow Rate FiO2 05/19/25 12:30 98.5 63 17 137/77 (97) 93 98.5 05/19/25 08:00 Room Air* 0 21 Total Intake and Output 05/18/25 05/18/25 05/19/25 15:00 23:00 07:00 Intake Total 400 ml 450 ml Balance 400 ml 450 ml medications Current Medications Medications Dose Ordered Sig/Ten Route Start Time Stop Time Status Last Admin Dose Admin Acetaminophen/ Hydrocodone Bitart 1 tab Q4HP PRN PO 05/11/25 21:00 05/18/25 00:51 1 TAB Ondansetron HCl 4 mg Q4HP PRN IV 05/11/25 21:00 05/18/25 23:36 4 MG Acetaminophen 650 mg Q6HP PRN PO 05/11/25 21:00 Enoxaparin Sodium 40 mg DAILY SC 05/11/25 21:00 05/19/25 09:34 40 MG Diagnostic Test (Pha) 1 strip ACHS 05/11/25 22:00 05/19/25 11:59 1 STRIP Insulin Human Regular ACHS SC 05/11/25 22:00 05/19/25 12:00 3 UNITS Dextrose 50 ml UD PRN IV 05/11/25 21:00 Losartan Potassium 25 mg DAILY PO 05/12/25 10:00 05/19/25 09:35 25 MG Allopurinol 100 mg DAILY PO 05/12/25 10:00 05/19/25 09:35 100 MG Hydromorphone HCl 0.25 mg Q4HPRN PRN IV 05/11/25 21:00 05/16/25 22:32 0.25 MG Carvedilol 6.25 mg Q12HR PO 05/12/25 10:00 05/19/25 09:35 6.25 MG Hydralazine HCl 10 mg Q6HP PRN IV 05/11/25 21:00 05/18/25 01:34 10 MG Patient Own Medication 1 DAILY PO 05/13/25 10:00 05/19/25 10:22 1 Colchicine 0.6 mg DAILY PO 05/13/25 10:00 05/19/25 09:35 0.6 MG Acyclovir 800 mg TID PO 05/12/25 22:00 05/19/25 14:24 800 MG Docusate Sodium 100 mg BIDPRN PRN PO 05/12/25 15:00 Ciprofloxacin 250 mg Q12HR PO 05/17/25 22:00 05/19/25 09:34 250 MG Examination: GENERAL:Normal, HEENT:Normal, NECK:Normal, LUNGS:Normal, CVS:Normal, ABDOMEN:Normal, MSK:Normal, SKIN:Normal, NEURO:Normal, :Normal laboratory and microbiology Laboratory Tests 05/14/25 11:40 Test 05/14/25 11:40 Range/Units Serum Glucose 190 H 74-106 mg/dL Microbiology Date/Time Source Procedure Growth Status 05/11/25 17:09 Voided Urine Urine Culture - Final Escherichia coli Complete Problem List/Assessment/Plan Problem List/Assessment/Plan #1 s/p fall with right ankle pain ?sprain: foot boot #2 dm: ssi #3 hypertensive urgency: cont meds #4 HIV: cont meds #5 obesity\ #6 gout #7 wheel chair bound/contractures #8 gallstones #9 uti with e coli: cipro advance care planning- full code- time spent 18 mins await dc planning to snf Plan discussed with: Patient Dietary Evaluation Review Recommendations by RD: Dietary education by RD Comments: 1) [facility] 2) Refer to outpatient RD/[facility] for diabetes counseling and weight management 3) Follow-up with infectious disease and cardiology 4) Continue to monitor I&O, labs, and skin integrity Expected Outcomes/Goals: 1) appetite and labs to improve 2) gradual wt loss 3) f/u in 3-5 days Date of Service: May 19, 2025 Billing Provider: BETTY LIN MD Common Visit Codes: [id number] INP/OBS CARE(HIGH) BETTY LIN MD May 19, 2025 15:03
== END 2025-05-19 19:08 | DRG 563 ==
LOC: EDBD 14:36 → ER 14:36 → EDUNIT# 14:36 → OVERFLOW 20:54 → WEST WING 23:01 → DOU 05-15 19:00 → TELE-WESTW 05-15 19:22
PROVIDERS: ADMIT Internal Medicine; ATTEND Internal Medicine
DX: S93.491A Sprain of other ligament of right ankle, initial encounter (principal); I16.0 Hypertensive urgency; D25.9 Leiomyoma of uterus, unspecified; B96.20 Unspecified Escherichia coli [E. coli] as the cause of diseases classified elsewhere; E11.9 Type 2 diabetes mellitus without complications; E66.01 Morbid (severe) obesity due to excess calories; N39.0 Urinary tract infection, site not specified; I10 Essential (primary) hypertension; M85.871 Other specified disorders of bone density and structure, right ankle and foot; H35.3190 Nonexudative age-related macular degeneration, unspecified eye, stage unspecified; H54.7 Unspecified visual loss; M10.9 Gout, unspecified; K80.20 Calculus of gallbladder without cholecystitis without obstruction; W18.39XA Other fall on same level, initial encounter; K59.00 Constipation, unspecified; Z99.3 Dependence on wheelchair; Z68.36 Body mass index [BMI] 36.0-36.9, adult; Z83.3 Family history of diabetes mellitus; Z98.51 Tubal ligation status; Y92.89 Other specified places as the place of occurrence of the external cause; Z79.4 Long term (current) use of insulin; Y93.89 Activity, other specified; Y99.8 Other external cause status
CPT/HCPCS: 36415; 70450; 71045; 73600; 74176; 80048; 80053; 80307; 81001; 82550; 82962; 83036; 83605; 83735; 84484; 85025; 85610; 85730; 87086; 87088; 87186; 97110; 97116; 97163; 97530; G0378; J1815; J1885; J2405